=== PATIENT | male | born 1950 | race Caucasian/White ===

== ENCOUNTER 2024-10-26 06:29 | Day surgery (SDC) | payer BC ==
[2024-10-20 14:45] LABS: BASOPHILS # (AUTO) 0.1 X10'3 (0-0.2); BASOPHILS % (AUTO) 0.8 % (0-1); EOSINOPHILS # (AUTO) 0.4 X10'3 (0-0.9); EOSINOPHILS % (AUTO) 5.2 % (0-6); LYMPHOCYTES # (AUTO) 1.7 X10'3 (1.1-4.8); LYMPHOCYTES % (AUTO) 22.7 % (21-51); MEAN CORPUSCULAR HEMOGLOBIN 29.6 PG (27.0-31.0); MEAN CORPUSCULAR HGB CONC 32.6 g/dL (33.0-36.5); MEAN CORPUSCULAR VOLUME 90.9 FL (78-98); MEAN PLATELET VOLUME 7.5 FL (7.4-10.4); MONOCYTES # (AUTO) 0.7 X10'3 (0-0.9); MONOCYTES % (AUTO) 9.9 % (2-12); NEUTROPHILS # (AUTO) 4.6 X10'3 (1.8-7.7); NEUTROPHILS % (AUTO) 61.4 % (42-75); PRE OP HEMATOCRIT 39.3 % (42.0-52.0); PRE OP HEMOGLOBIN 12.8 g/dL (14.0-17.9); PRE OP PLATELET COUNT 306 X10'3 (140-440); PRE OP WHITE BLOOD COUNT 7.4 10'3 (4.8-10.8); RED BLOOD COUNT 4.32 X10'6 (4.70-6.10); RED CELL DISTRIBUTION WIDTH 14.6 % (11.5-14.5)
[2024-10-20 15:02] LABS: ALBUMIN 3.8 G/DL (3.4-5.0); ALBUMIN/GLOBULIN RATIO 1.1 (1.1-1.5); ALKALINE PHOSPHATASE 93 IU/L (46-116); BLOOD UREA NITROGEN 22 MG/DL (7-18); CALCIUM 9.6 MG/DL (8.5-10.1); CHLORIDE 107 MMOL/L (99-107); PRE OP ALT 29 U/L (30-65); PRE OP ANION GAP 11 (8-16); PRE OP AST 8 U/L (10-37); PRE OP BILIRUB, TOTAL 0.3 MG/DL (0.0-1.0); PRE OP GLUCOSE 88 MG/DL (70-104); PRE OP SODIUM 145 MMOL/L (135-145); TOTAL CARBON DIOXIDE 26.9 MMOL/L (24-32); TOTAL PROTEIN 7.4 G/DL (6.4-8.2); eGFR 66 ML/MIN
[2024-10-26] VITALS (13 sets, daily range): BP systolic 133–163; BP diastolic 74–87; PULSE 55–76; RESP 12–16; TEMP 97.3; O2SAT 90–99
[~2024-10-26] VITALS: Ht 172.7 cm; Wt 96.9 kg
[~2024-10-26 06:29] MED LIST: ATOR10TA87 PO; DAPA10TA PO; FINA5TAB11 PO; GLIP10TA18 PO; METF-438 PO; PIOG30TA72 PO; RAMI10CA78 PO
[2024-10-26] MEDS ORDERED: BUPIVAcaine 2.5mg/ml inj 50ml vial (contains preservative) ONE (06:46)
[2024-10-26] MEDS ORDERED: LIDOcaine 1% 30ml preserv. free vial ONE (06:46)
[2024-10-26] MEDS ORDERED: BUPIVACAINE liposomal/PF 13.3 MG/ML 10mL vial IM ONE (06:51)
[2024-10-26] MEDS: ringers solution, lacted 1,000 ML IV SCH (07:11)
[2024-10-26] MEDS: famotidine 20mg tablet PO ONE (07:11)
[2024-10-26] MEDS: clindamycin-Cleocin 900mg/D5W 50 ML IV ONE (07:11)
[2024-10-26] MEDS ORDERED: sevoflurane 250ml liquid IH ONE (08:22)
[2024-10-26] MEDS ORDERED: fentaNYL/PF 50MCG/1 ML 2ML syringe ONE (08:31)
[2024-10-26] MEDS ORDERED: midazolam 1 mg/ML 2ml injection ONE (08:31)
[2024-10-26] MEDS ORDERED: meperidine/PF 25mg/ml syringe ONE (08:32)
[2024-10-26] MEDS ORDERED: acetaminophen 1,000mg/100ml IV 100 ML IV ONE (08:53)
[2024-10-26] MEDS ORDERED: LIDOcaine 2% (20mg/ml) 5ml vial ONE (09:07)
[2024-10-26] MEDS ORDERED: propofol inj 20 ML IV ONE (09:08)
[2024-10-26] MEDS ORDERED: dexamethasone sod phosphate 4mg/ml inj. ONE (09:09)
[2024-10-26] MEDS ORDERED: ondansetron/PF 4mg/2ml inj ONE (09:09)
[2024-10-26] MEDS ORDERED: meperidine/PF 25mg/ml syringe IV PRN ×3 (09:35)
[2024-10-26] MEDS ORDERED: proCHLORperazine 10 MG/2 ml inj IV PRN (09:35)
[2024-10-26] MEDS ORDERED: morphine 2 MG/ML inj. syringe IV PRN (09:35)
[2024-10-26] MEDS ORDERED: ringers solution, lacted 1,000 ML IV SCH (09:35)
[2024-10-26] MEDS ORDERED: ondansetron/PF 4mg/2ml inj IV PRN (09:35)
[2024-10-26] MEDS ORDERED: enalaprilat 1.25mg/ml 2ml vial IV PRN (09:35)
[2024-10-26] MEDS ORDERED: morphine 4 MG/ML inj SYRINge IV PRN (09:35)
[2024-10-26] MEDS ORDERED: labetalol 20mg/4ml (5mg/ml) syringe IV PRN (09:35)
[2024-10-26] MEDS ORDERED: rocuronium 10mg/ml inj IV ONE (09:37)
[2024-10-26] MEDS: oxyCODONE/APAP 5-325mg tablet PO PRN (10:32)
== END 2024-10-26 11:25 | disposition home or self-care (01) ==
LOC: PAS 06:29
PROVIDERS: ATTEND Surgery
DX: K42.9 Umbilical hernia without obstruction or gangrene (principal); E11.9 Type 2 diabetes mellitus without complications; Z79.899 Other long term (current) drug therapy; Z79.01 Long term (current) use of anticoagulants; Z88.0 Allergy status to penicillin; Z98.890 Other specified postprocedural states; Z87.442 Personal history of urinary calculi
CPT/HCPCS: 36415; 49591; 64488; 80053; 82948; 85025; 93005; C1781; J0131; J0666; J1100; J2003; J2175; J2250; J2405; J2704; J2710; J3010; J3490; J7030; J7120; Z7506; Z7508; Z7512; A4215; A4618; C1758